=== PATIENT | female | born 1945 | race Hispanic/Latino ===

== ENCOUNTER 2020-09-20 05:30 | Observation (INO) | payer MEDICARE ==
[2020-09-16 09:29] VITALS: BP 167/85
[2020-09-16 12:54] LABS: BASOPHILS % (AUTO) 1.1 % (0.0-5.0); HEMATOCRIT 41.6 % (36-48); LYMPHOCYTES % (AUTO) 26.5 % (21.0-51.0); MEAN CORPUSCULAR HEMOGLOBIN 30.9 pg (27.0-33.0); MEAN CORPUSCULAR HGB CONC 34.1 g/dL (32.0-36.0); MEAN CORPUSCULAR VOLUME 90.4 fL (79-99); MONOCYTES % (AUTO) 5.9 % (3.0-13.0); NEUTROPHILS % (AUTO) 65.2 % (40.0-77.0); PLATELET COUNT (AUTO) 281 K/uL (130-400); RED CELL DISTRIBUTION WIDTH 12.9 % (11.0-15.5); WHITE BLOOD COUNT (AUTO) 7.1 K/uL (4.8-10.8)
[2020-09-16 13:02] LABS: CREATININE 0.9 mg/dL (0.5-1.5); POTASSIUM 4.3 mmol/L (3.5-5.1)
[2020-09-20] VITALS (24 sets, daily range): BP systolic 124–162; BP diastolic 51–75
[~2020-09-20] VITALS: Ht 157.5 cm; Wt 75.7 kg
[2020-09-20] MEDS: CEFAZOLIN SODIUM 1 GM VIAL IVP SCH ×2 (05:00→08:45)
[~2020-09-20 05:30] MED LIST: OMEP40CA21 PO; PRAV40TA3 PO
[2020-09-20] MEDS ORDERED: LACTATED RINGERS 1000ML 1,000 ML IV ONE (06:21)
[2020-09-20] MEDS ORDERED: SUCCINYLCHOLINE CHLORIDE 20 MG/ML 10 ML VIAL ONE (06:58)
[2020-09-20] MEDS ORDERED: PROPOFOL 10 MG/ML 20ML VIAL IV ONE (06:58)
[2020-09-20] MEDS ORDERED: LIDOCAINE PF 100MG/5ML (2%) SYRINGE 5ML ONE (06:58)
[2020-09-20] MEDS ORDERED: ROCURONIUM 10MG/1ML SYR 10 MG/ML ML ONE (06:58)
[2020-09-20] MEDS ORDERED: FENTANYL CITRATE PF 50 MCG/1 ML 2ML VIAL ONE (06:59)
[2020-09-20] MEDS ORDERED: SUCCINYLCHOLINE 200MG/10ML SYR ONE (07:04)
[2020-09-20] MEDS ORDERED: GLYCOPYRROLATE 1 MG/5 ML SYRINGE ONE (09:57)
[2020-09-20] MEDS ORDERED: NEOSTIGMINE 5MG/5ML SYR IV ONE (09:57)
[2020-09-20] MEDS ORDERED: MEPERIDINE-PF 25 MG/ML SYG ONE ×2 (10:03→10:36)
[2020-09-20] MEDS ORDERED: ONDANSETRON 4MG INJ ONE (10:03)
[2020-09-20] MEDS ORDERED: IBUPROFEN 600 MG TABLET PO PRN (12:00)
[2020-09-20] MEDS ORDERED: MEPERIDINE-PF 75 MG/ML SYG IM PRN (12:00)
[2020-09-20] MEDS ORDERED: ONDANSETRON 4MG INJ IVP PRN (12:00)
[2020-09-20] MEDS ORDERED: PROMETHAZINE HCL 25 MG/ML 1ML AMPULE IM PRN ×2 (12:00)
[2020-09-20] MEDS ORDERED: SIMETHICONE 80 MG TAB.CHEW PO PRN (12:00)
[2020-09-20] MEDS ORDERED: BISACODYL 10 MG SUPP.RECT RC PRN (12:00)
[2020-09-20] MEDS: DEXTROSE 5 %-0.45 % NACL 1,000 ML IV PRN ×2 (15:38→23:36)
[2020-09-20] MEDS: ACETAMINOPHEN WITH CODEINE 1 TAB TAB PO PRN ×2 (19:32→23:44)
[2020-09-21 03:01] VITALS: BP 123/64
[2020-09-21] MEDS ORDERED: IBUPROFEN 600 MG TABLET PO PRN (03:30)
[2020-09-21] MEDS ORDERED: HYDROCODONE/ACETAMINOPHEN 5/325 MG TAB PO PRN (03:45)
[2020-09-21] MEDS: CEFAZOLIN SODIUM 1 GM VIAL IVP SCH (05:00)
[2020-09-21 05:29] LABS: HEMATOCRIT 35.8 % (36-48); MEAN CORPUSCULAR HEMOGLOBIN 29.7 pg (27.0-33.0); MEAN CORPUSCULAR HGB CONC 34.1 g/dL (32.0-36.0); MEAN CORPUSCULAR VOLUME 87.1 fL (79-99); RED BLOOD CELL COUNT(AUTO) 4.11 MIL/uL (4.00-5.50); RED CELL DISTRIBUTION WIDTH 12.3 % (11.0-15.5); WHITE BLOOD COUNT (AUTO) 11.7 K/uL (4.8-10.8)
[2020-09-21 07:21] VITALS: BP 136/63
[2020-09-21] MEDS: IBUPROFEN 800 MG TAB PO PRN (08:41)
[2020-09-21] MEDS: DOCUSATE SODIUM 100 MG CAP PO PRN ×2 (08:41→21:38)
[2020-09-21] MEDS: NITROFURANTOIN MONOHYD/M-CRYST 100 MG CAPSULE PO SCH ×2 (10:25→21:38)
[2020-09-21 11:24] VITALS: BP 149/64
[2020-09-21] MEDS: ACETAMINOPHEN WITH CODEINE 1 TAB TAB PO PRN (11:41)
[2020-09-21 19:19] VITALS: BP 134/59
[2020-09-21 23:36] VITALS: BP 148/80
[2020-09-22] MEDS: ACETAMINOPHEN WITH CODEINE 1 TAB TAB PO PRN (00:24)
[2020-09-22 03:08] VITALS: BP 131/70
[2020-09-22 07:12] VITALS: BP 155/61
[2020-09-22 11:17] VITALS: BP 148/82
[2020-09-22] MEDS: IBUPROFEN 800 MG TAB PO PRN (13:02)
[2020-09-22] MEDS: NITROFURANTOIN MONOHYD/M-CRYST 100 MG CAPSULE PO SCH (13:08)
[2020-09-22 15:00] VITALS: BP 137/81
== END 2020-09-22 15:20 | disposition home or self-care (01) ==
LOC: DAH 05:30 → WSH 05:31 → DAH 05:31 → WSH 11:30
PROVIDERS: ADMIT Obstetrics & Gynecology; ATTEND Obstetrics & Gynecology
DX: N81.4 Uterovaginal prolapse, unspecified (principal); Z20.822 Contact with and (suspected) exposure to COVID-19; N39.3 Stress incontinence (female) (male); K46.9 Unspecified abdominal hernia without obstruction or gangrene; E78.5 Hyperlipidemia, unspecified; M19.90 Unspecified osteoarthritis, unspecified site; Z79.899 Other long term (current) drug therapy
CPT/HCPCS: 36415 ×3; 57260; 57288; 80048; 85025; 85027; 86850 ×2; 86900 ×2; 86901 ×2; 88305; 93005; 96360; 96361 ×2; 96372; A4215; A4216; A4221; A4222; A4223 ×2; A4344; A4351; A4510; A4600; A4606; A4663; A6260; C1771; C9803; G0378 ×52; J0330 ×2; J0690; J2001; J2175 ×3; J2405; J2550; J2704; J2710; J3010; J3490; J7120 ×2; L0625; U0003

== ENCOUNTER → 2021-11-22 | Outpatient (CLI) | payer MEDICARE ==
[~2021-11-22] MED LIST changes: +GADOTERATE MEGLUMINE 5 MMOL/10 ML VIAL IV ONE
== END | disposition home or self-care (01) ==
LOC: RAH 10:31
PROVIDERS: ATTEND Otolaryngology Plastic Surgery within the Head & Neck
DX: H90.3 Sensorineural hearing loss, bilateral (principal)
CPT/HCPCS: 70553; A9575